=== PATIENT | male | born 1980 | race Caucasian/White ===

== ENCOUNTER 2016-10-04 18:04 | Emergency (ER) | payer OTHER, BC ==
--- NOTE | 2016-10-23 15:51 | ER ---
ADMIT: 10/04/2016 RM/LOC: ER [facility] MR#: [id number] [address] [id number] BREN FERNANDEZ [address] [place] [address] Emergency Room Report SEX: M AGE: 35 : 1980 DATE: 10/04/2016 This 35-year-old was doing some construction work when a knife slipped, lacerating his left forearm, approximately 1 cm in length. See T-sheet for remainder history and physical. The patient was updated with his tetanus. The wound was stapled per the PA. Instructed to remove the brandon in approximately 10 days. DIAGNOSIS: Laceration with subsequent repair, stable. Mele Crews MD/ amrita JOB #: [id number] CC: Mele Crews MD, Attending Physician
== END 2016-10-04 18:43 | disposition home or self-care (01) ==
LOC: ER 18:04
PROC: 0HQEXZZ Repair Left Lower Arm Skin, External Approach (ICD-10-PCS; principal; 2016-10-04)
DX: S51.812A Laceration without foreign body of left forearm, initial encounter (principal); F17.210 Nicotine dependence, cigarettes, uncomplicated; Z23 Encounter for immunization; W26.0XXA Contact with knife, initial encounter